=== PATIENT | female | born 2000 | race Caucasian/White ===

== ENCOUNTER 2021-06-09 21:38 | Emergency (ER) | payer OTHER, BC | END 2021-06-10 01:49 | disposition home or self-care (01) | LOC: ERS 21:38 | DX: S93.402A Sprain of unspecified ligament of left ankle, initial encounter (principal); S80.01XA Contusion of right knee, initial encounter; J45.909 Unspecified asthma, uncomplicated; V89.9XXA Person injured in unspecified vehicle accident, initial encounter ==

== ENCOUNTER 2023-03-07 18:14 | Inpatient (IN) | payer OTHER, BC ==
[~2023-03-07 18:14] MED LIST: Iopamidol-370 76% 500 ML MDV (1 ML CHARGE) ONE
[2023-03-07] MEDS ORDERED: Morphine 4 MG/ML VIAL ONE ×2 (18:18→18:40)
[2023-03-07] MEDS ORDERED: Ondansetron PF 4 MG/2 ML Vial ONE (18:18)
[2023-03-07] MEDS ORDERED: fentaNYL 50 mcg/mL 1 mL Vial ONE ×2 (18:27→20:23)
[2023-03-07] MEDS ORDERED: HYDROmorphone 0.5 MG/0.5 ML SYRINGE ONE (19:10)
[2023-03-07] MEDS ORDERED: Ondansetron PF 4 MG/2 ML Vial IVP PRN (19:18)
[2023-03-07] MEDS ORDERED: Ipratropium/Albuterol 3 ML NEB NEB PRN (19:18)
[2023-03-07] MEDS ORDERED: TETANUS, DIPHTHERIA TOX,ADULT (TDVAX) 0.5 ML VIAL IM ONE (19:18)
[2023-03-07] MEDS ORDERED: diphenhydrAMINE 50 MG/ML VIAL IVP PRN (19:21)
[2023-03-07] MEDS ORDERED: diphenhydrAMINE 50 MG/ML VIAL IM PRN (19:21)
[2023-03-07] MEDS ORDERED: diphenhydrAMINE 25 MG CAP PO PRN (19:21)
[2023-03-07] MEDS ORDERED: Zolpidem Tartrate 5 MG TAB PO PRN (19:21)
[2023-03-07] MEDS ORDERED: Ketorolac Tromethamine 30 MG/ML VIAL IVP PRN (19:21)
[2023-03-07] MEDS ORDERED: Naloxone HCl 0.4 mg/ml Vial IV PRN (19:21)
[2023-03-07] MEDS ORDERED: Communication Order-Pharmacy FS SCH (19:30)
[2023-03-07] MEDS ORDERED: Sodium Chloride 0.9% 1,000 ML IV SCH (19:30)
[2023-03-07] MEDS ORDERED: CEFAZOLIN 2 GM VIAL ONE (20:00)
[2023-03-07] MEDS ORDERED: Boostrix 0.5 ML (Tdap) VIAL (>/=7 yrs of age) ONE (20:00)
[2023-03-07 20:02] LABS: Hemoglobin 12.1 g/dL (12.0-16.0); Mean Corpuscular HGB CONC 34.7 g/dL (32.0-36.0); Mean Corpuscular Hemoglobin 28.6 pg (27.0-31.0); Mean Corpuscular Volume 82.5 fl (78.0-98.0); Mean Platelet Volume 7.7 fL (7.4-10.4); Platelet Count 282 10x3/uL (130-400); RBC Distribution Width 12.4 % (11.5-14.5); Red Blood Cell (RBC) Count 4.22 mill/uL (4.20-5.40); White Blood Cell (WBC) Count 29.7 10x3/uL (4.8-10.8)
[2023-03-07 20:06] LABS: BHCG - Serum Negative (NEGATIVE); Pregs Control Background? CLEAR/WHITE (CLR/WHITE); Pregs Control Bar Appear? YES (CONTROL BAR)
[2023-03-07 20:11] LABS: PTT 23.6 sec (22.9-36.1); Prothrombin Time 13.8 sec (12.0-14.7)
[2023-03-07 20:21] LABS: ALT (SGPT) 72 U/L (8-55); AST (SGOT) 130 U/L (5-34); Albumin 3.7 g/dL (3.5-5.0); Alcohol Less than 10 mg/dL (Less than 10); Alkaline Phosphatase 61 U/L (40-110); Anion Gap 15 mmol/L (10-20); BUN (Urea Nitrogen) 10 mg/dL (7.0-18.7); Bilirubin, Total 0.4 mg/dL (0.2-1.2); Calc. Creatinine Clearance 0 mL/min (70-130); Calcium 8.9 mg/dL (7.8-10.44); Carbon Dioxide 18 mmol/L (22-29); Chloride 105 mmol/L (98-107); Estimated GFR 120; Globulin 2.7 g/dL (2.4-3.5); Glucose 117 mg/dL (70-105); Lipase 25 U/L (8-78); Potassium 3.4 mmol/L (3.5-5.1); Protein, Total 6.4 g/dL (6.0-8.3); Sodium 135 mmol/L (136-145)
[2023-03-07 20:45] LABS: Band 12 % (5-11); Eosinophils 1 % (0-10); Lymphocytes 5 % (21-51); MDiff Complete? YES; Monocytes 4 % (0-10); Neutrophil 78 % (42-75); Platelet Morphology Comment Appears Adequate; RBC Morphology Normal; Reflex for Review?? NO
[2023-03-07 20:59] LABS: Actual Bicarbonate (HCO3v) 20 mEq/L (22-28); Analyzer IN Cardio ER; Base Excess -4.1 mEq/L (-2.0 to +3.0); Calcium, Ionized (venous) 1.08 mmol/L (1.16-1.32); Chloride (VBG) 104 mmol/L (98-106); Hemoglobin (Hb) 12.5 g/dL (11.7-15.5); Potassium (VBG) 3.95 mmol/L (3.70-5.30); Sodium 135.2 mmol/L (133-146); pH (venous) 7.38 (7.32-7.43)
[2023-03-07] MEDS ORDERED: HYDROmorphone 0.5 MG/0.5 ML SYRINGE SLOW IVP SCH ×2 (21:45→21:46)
[2023-03-07] MEDS ORDERED: Lidocaine 1% w/Epinephrine 1:100K 20 ML VIAL IJ SCH (21:45)
[2023-03-07] MEDS: HYDROmorphone 10 mg/100 ml CADD IVPB PRN (22:05)
[2023-03-07] MEDS ORDERED: Ketorolac Tromethamine 30 MG/ML VIAL IVP SCH (23:59)
[2023-03-08] MEDS: Ondansetron PF 4 MG/2 ML Vial IVP PRN (00:07)
[2023-03-08 00:12] LABS: Amphetamine Not Detected (NotDetected); Barbiturates Screen Not Detected (NotDetected); Benzodiazepine Screen Not Detected (NotDetected); Cocaine Metabolite Screen Not Detected (NotDetected); Methadone Not Detected (NotDetected); Methamphetamine Not Detected (NotDetected); Opiate Screen Detected (NotDetected); Oxycodone Screen Not Detected (NotDetected); Phencyclidine (PCP) Not Detected (NotDetected); THC/Cannabinoid Screen Not Detected (NotDetected); Tricyclic Screen Detected (NotDetected)
[2023-03-08 00:13] LABS: Bacteria/HPF None Seen HPF (None Seen); Bilirubin Negative (Negative); Blood, Urine 2+ (Negative); Clarity Clear (Clear); Glucose, Urine (Dipstick) Normal (Negative); Ketone, Urine Negative (Negative); Leukocyte Negative Leu/uL (Negative); Nitrite Negative (Negative); Protein, Urine (Dipstick) 30 mg/dL (Neg-Trace); RBC/HPF 21-50 HPF (0-3); Squamous Epithelial 0-3 HPF (0-3); Urobilinogen Normal mg/dL (Less than 2)
[2023-03-08 00:14] LABS: Specific Gravity, Urine 1.063 (1.002-1.036)
[2023-03-08 00:15] LABS: Pregnancy Test - Urine (BHCG) Negative (Negative); Pregu Control Background? CLEAR/WHITE (CLR/WHITE); Pregu Control Bar Appear? YES (CONTROL BAR)
[2023-03-08 00:16] LABS: Specific Gravity 1.063 (1.002-1.036)
[2023-03-08] MEDS ORDERED: Cyclobenzaprine 10 MG TAB PO SCH (00:45)
[2023-03-08] MEDS: Acetaminophen 500 MG TAB PO SCH ×5 (01:09→19:46)
[2023-03-08] MEDS: Scopolamine 1.5 mg/72 hour Patch TD SCH (01:15)
[2023-03-08] MEDS: Famotidine/PF 20 mg/2ml Vial SLOW IVP SCH ×3 (01:16→21:15)
[2023-03-08] MEDS: Lactated Ringer's 1,000 ML IV SCH ×6 (01:18→23:33)
[2023-03-08 01:24] LABS: #Lymphocytes 1.3 thou/uL (1.20-3.40); #Monocytes 0.8 thou/uL (0.11-0.59); #Neutrophils 15.8 thou/uL (1.40-6.50); %Basophils 0.2 % (0.0-1.0); %Eosinophils 0.1 % (0.0-10.0); %Lymphocytes 7.3 % (21.0-51.0); %Monocytes 4.2 % (0.0-10.0); %Neutrophils 88.1 % (42.0-75.0); Hemoglobin 11.9 g/dL (12.0-16.0); Mean Corpuscular HGB CONC 35.2 g/dL (32.0-36.0); Mean Corpuscular Hemoglobin 29.5 pg (27.0-31.0); Mean Corpuscular Volume 83.8 fl (78.0-98.0); Mean Platelet Volume 8.2 fL (7.4-10.4); Platelet Count 261 10x3/uL (130-400); RBC Distribution Width 12.7 % (11.5-14.5); Red Blood Cell (RBC) Count 4.02 mill/uL (4.20-5.40); White Blood Cell (WBC) Count 17.9 10x3/uL (4.8-10.8)
[2023-03-08 04:15] LABS: #Basophils 0.1 thou/uL (0.0-0.2); #Lymphocytes 1.7 thou/uL (1.20-3.40); #Monocytes 0.8 thou/uL (0.11-0.59); #Neutrophils 13.6 thou/uL (1.40-6.50); %Basophils 0.7 % (0.0-1.0); %Eosinophils 0.1 % (0.0-10.0); %Lymphocytes 10.6 % (21.0-51.0); %Monocytes 4.7 % (0.0-10.0); %Neutrophils 83.9 % (42.0-75.0); Hemoglobin 11.2 g/dL (12.0-16.0); Mean Corpuscular HGB CONC 32.7 g/dL (32.0-36.0); Mean Corpuscular Hemoglobin 27.3 pg (27.0-31.0); Mean Corpuscular Volume 83.3 fl (78.0-98.0); Platelet Count 232 10x3/uL (130-400); RBC Distribution Width 12.7 % (11.5-14.5); Red Blood Cell (RBC) Count 4.09 mill/uL (4.20-5.40); White Blood Cell (WBC) Count 16.2 10x3/uL (4.8-10.8)
[2023-03-08 04:32] LABS: Prothrombin Time 13.9 sec (12.0-14.7)
[2023-03-08 04:37] LABS: Anion Gap 14 mmol/L (10-20); BUN (Urea Nitrogen) 10 mg/dL (7.0-18.7); CK (CPK) 847 U/L (29-168); Calc. Creatinine Clearance 264 mL/min (70-130); Calcium 8.7 mg/dL (7.8-10.44); Carbon Dioxide 21 mmol/L (22-29); Chloride 106 mmol/L (98-107); Estimated GFR 126; Glucose 123 mg/dL (70-105); Potassium 4.1 mmol/L (3.5-5.1); Sodium 137 mmol/L (136-145)
[2023-03-08] MEDS: CEFAZOLIN 2 GM in Sodium Chloride 0.9% 100 ML IVPB SCH ×3 (04:40→21:15)
[2023-03-08 05:17] LABS: PTT 17.6 sec (22.9-36.1)
[2023-03-08] MEDS ORDERED: HYDROmorphone 0.5 MG/0.5 ML SYRINGE SLOW IVP SCH (08:04)
[2023-03-08] MEDS ORDERED: Sodium Chloride 0.9% 100 ML ONE (12:46)
[2023-03-08] MEDS ORDERED: CEFAZOLIN 2 GM VIAL ONE (12:46)
[2023-03-08] MEDS ORDERED: Oxymetazoline HCl 0.05% (30 ML BOT) ONE (13:24)
[2023-03-08] MEDS ORDERED: fentaNYL 50 mcg/mL 1 mL Vial ONE ×3 (13:42→19:35)
[2023-03-08] MEDS ORDERED: fentaNYL PF 100 MCG/2 ML SYRINGE ONE (14:37)
[2023-03-08] MEDS ORDERED: Lidocaine Jelly 2% Urojet 10 ML ONE (14:37)
[2023-03-08] MEDS ORDERED: Lidocaine 1% (PF) 30 ML VIAL ONE (14:42)
[2023-03-08] MEDS ORDERED: Chlorhexidine Gluconate 15 ML UDCUP SSP ONE (14:42)
[2023-03-08] MEDS ORDERED: EPINEPHrine 1 MG/ML AMP ONE (14:42)
[2023-03-08] MEDS ORDERED: Midazolam HCl 2 mg/2 ml Vial ONE (15:08)
[2023-03-08] MEDS ORDERED: Lidocaine 1% PF 5 ML VIAL ONE (15:13)
[2023-03-08] MEDS ORDERED: GLYCOPYRROLATE/PF 0.2 MG/ML VIAL ONE (15:13)
[2023-03-08] MEDS ORDERED: NEOSTIGMINE 3 MG/3 ML SYR 3 MG/3 ML SYRINGE ONE (15:13)
[2023-03-08] MEDS ORDERED: Rocuronium Bromide 10 MG/ML (10ML VIAL) ONE (15:13)
[2023-03-08] MEDS ORDERED: Dexamethasone 20 MG/5 ML VIAL ONE (15:13)
[2023-03-08] MEDS ORDERED: PROPOFOL 200 MG/20 ML VIAL ONE (15:13)
[2023-03-08] MEDS ORDERED: HYDROmorphone 2 MG/ML VIAL ONE (15:30)
[2023-03-08] MEDS ORDERED: Bacitracin Zinc Ointment 30 gm TUBE ONE (16:07)
[2023-03-08] MEDS ORDERED: CEFAZOLIN 1 GM VIAL ONE (18:07)
[2023-03-08] MEDS ORDERED: Non-Formulary Medication 1 EACH PO PRN (19:38)
[2023-03-08] MEDS ORDERED: Promethazine HCl 25 MG/ML VIAL IM/IV PRN (19:45)
[2023-03-08] MEDS ORDERED: Ondansetron HCl/PF 4 MG/2 ML Vial IVP PRN (19:45)
[2023-03-08] MEDS ORDERED: Ketorolac Tromethamine 30 MG/ML VIAL IM/IV PRN (19:45)
[2023-03-08] MEDS ORDERED: HYDROmorphone 2 MG/ML VIAL SLOW IVP PRN (19:45)
[2023-03-08] MEDS ORDERED: Albuterol 200 PUFF (6.7GM INHALER) INH PRN (23:26)
[2023-03-09] MEDS: Acetaminophen 500 MG TAB PO SCH ×4 (00:27→19:37)
[2023-03-09] MEDS: CEFAZOLIN 2 GM in Sodium Chloride 0.9% 100 ML IVPB SCH ×3 (05:06→21:07)
[2023-03-09] MEDS: Lactated Ringer's 1,000 ML IV SCH (05:07)
[2023-03-09 06:04] LABS: #Lymphocytes 2.1 thou/uL (1.20-3.40); #Monocytes 1.1 thou/uL (0.11-0.59); #Neutrophils 10.6 thou/uL (1.40-6.50); %Basophils 0.2 % (0.0-1.0); %Eosinophils 0.2 % (0.0-10.0); %Lymphocytes 15.4 % (21.0-51.0); %Monocytes 7.6 % (0.0-10.0); %Neutrophils 76.7 % (42.0-75.0); Mean Corpuscular HGB CONC 33.1 g/dL (32.0-36.0); Mean Corpuscular Hemoglobin 27.5 pg (27.0-31.0); Mean Corpuscular Volume 83.2 fl (78.0-98.0); Mean Platelet Volume 7.9 fL (7.4-10.4); Platelet Count 248 10x3/uL (130-400); RBC Distribution Width 12.5 % (11.5-14.5); Red Blood Cell (RBC) Count 3.27 mill/uL (4.20-5.40); White Blood Cell (WBC) Count 13.9 10x3/uL (4.8-10.8)
[2023-03-09 06:24] LABS: Anion Gap 14 mmol/L (10-20); BUN (Urea Nitrogen) 6 mg/dL (7.0-18.7); Calc. Creatinine Clearance 272 mL/min (70-130); Calcium 8.1 mg/dL (7.8-10.44); Carbon Dioxide 20 mmol/L (22-29); Chloride 104 mmol/L (98-107); Estimated GFR 127; Glucose 114 mg/dL (70-105); Magnesium 1.7 mg/dL (1.6-2.6); Phosphorus 2.6 mg/dL (2.3-4.7); Potassium 4.3 mmol/L (3.5-5.1); Sodium 134 mmol/L (136-145)
[2023-03-09] MEDS: Senokot S 8.6-50 MG TAB PO SCH (09:36)
[2023-03-09] MEDS: Cyclobenzaprine 10 MG TAB PO PRN (09:36)
[2023-03-09] MEDS: Gabapentin 300 MG CAP PO SCH ×3 (09:37→21:06)
[2023-03-09] MEDS: Diltiazem HCl SR 90 mg Capsule PO SCH (09:37)
[2023-03-09] MEDS: Polyethylene Glycol 3350 17 GM Packet PO SCH (09:42)
[2023-03-09] MEDS: Fluticasone Propionate Nasal Spray 16 gm Bottle NASAL SCH (14:28)
[2023-03-09] MEDS: HYDROmorphone 10 mg/100 ml CADD IVPB PRN (19:38)
[2023-03-10] MEDS: Senokot S 8.6-50 MG TAB PO SCH ×3 (01:29→20:13)
[2023-03-10] MEDS: Acetaminophen 500 MG TAB PO SCH ×4 (02:36→20:13)
[2023-03-10] MEDS: CEFAZOLIN 2 GM in Sodium Chloride 0.9% 100 ML IVPB SCH (05:20)
[2023-03-10] MEDS ORDERED: traMADol HCl 50 MG TAB PO SCH (09:00)
[2023-03-10] MEDS: Gabapentin 300 MG CAP PO SCH ×3 (09:08→20:13)
[2023-03-10] MEDS: Diltiazem HCl SR 90 mg Capsule PO SCH (09:09)
[2023-03-10] MEDS: Fluticasone Propionate Nasal Spray 16 gm Bottle NASAL SCH (09:12)
[2023-03-10] MEDS: Polyethylene Glycol 3350 17 GM Packet PO SCH (09:15)
[2023-03-10 09:48] LABS: #Eosinphils 0.1 thou/uL (0.0-0.7); #Lymphocytes 3.1 thou/uL (1.20-3.40); #Monocytes 0.8 thou/uL (0.11-0.59); #Neutrophils 7.6 thou/uL (1.40-6.50); %Basophils 0.4 % (0.0-1.0); %Eosinophils 1.1 % (0.0-10.0); %Lymphocytes 26.7 % (21.0-51.0); %Monocytes 6.6 % (0.0-10.0); %Neutrophils 65.2 % (42.0-75.0); Hemoglobin 8.8 g/dL (12.0-16.0); Mean Corpuscular HGB CONC 32.6 g/dL (32.0-36.0); Mean Corpuscular Hemoglobin 27.8 pg (27.0-31.0); Mean Corpuscular Volume 85.3 fl (78.0-98.0); Mean Platelet Volume 7.9 fL (7.4-10.4); Platelet Count 257 10x3/uL (130-400); RBC Distribution Width 12.6 % (11.5-14.5); Red Blood Cell (RBC) Count 3.15 mill/uL (4.20-5.40); White Blood Cell (WBC) Count 11.7 10x3/uL (4.8-10.8)
[2023-03-10 10:13] LABS: Anion Gap 11 mmol/L (10-20); BUN (Urea Nitrogen) 6 mg/dL (7.0-18.7); Calc. Creatinine Clearance 305 mL/min (70-130); Calcium 8.1 mg/dL (7.8-10.44); Carbon Dioxide 24 mmol/L (22-29); Chloride 103 mmol/L (98-107); Estimated GFR 130; Glucose 99 mg/dL (70-105); Magnesium 1.9 mg/dL (1.6-2.6); Sodium 134 mmol/L (136-145)
[2023-03-10] MEDS: traMADol HCl 50 MG TAB PO SCH ×3 (11:38→23:31)
[2023-03-10 13:12] LABS: Phosphorus 1.6 mg/dL (2.3-4.7)
[2023-03-10] MEDS: Scopolamine 1.5 mg/72 hour Patch TD SCH (18:47)
[2023-03-11 03:49] VITALS: BMI 42.3
[2023-03-11] MEDS: Acetaminophen 500 MG TAB PO SCH ×2 (03:50→09:02)
[2023-03-11] MEDS: traMADol HCl 50 MG TAB PO SCH ×2 (05:43→12:35)
[2023-03-11] MEDS ORDERED: Morphine 4 MG/ML VIAL ONE (08:28)
[2023-03-11] MEDS: Senokot S 8.6-50 MG TAB PO SCH ×2 (09:02→20:11)
[2023-03-11] MEDS: Polyethylene Glycol 3350 17 GM Packet PO SCH (09:02)
[2023-03-11] MEDS: Gabapentin 300 MG CAP PO SCH ×3 (09:03→20:12)
[2023-03-11] MEDS: Fluticasone Propionate Nasal Spray 16 gm Bottle NASAL SCH (09:04)
[2023-03-11] MEDS: Diltiazem HCl SR 90 mg Capsule PO SCH (09:04)
[2023-03-11 10:05] LABS: #Basophils 0.1 thou/uL (0.0-0.2); #Eosinphils 0.3 thou/uL (0.0-0.7); #Lymphocytes 2.1 thou/uL (1.20-3.40); #Monocytes 0.7 thou/uL (0.11-0.59); #Neutrophils 9.4 thou/uL (1.40-6.50); %Basophils 0.5 % (0.0-1.0); %Eosinophils 2.3 % (0.0-10.0); %Lymphocytes 16.5 % (21.0-51.0); %Monocytes 5.8 % (0.0-10.0); %Neutrophils 74.9 % (42.0-75.0); Hemoglobin 9.5 g/dL (12.0-16.0); Mean Corpuscular HGB CONC 33.7 g/dL (32.0-36.0); Mean Corpuscular Hemoglobin 28.3 pg (27.0-31.0); Mean Platelet Volume 7.7 fL (7.4-10.4); Platelet Count 279 10x3/uL (130-400); RBC Distribution Width 12.4 % (11.5-14.5); Red Blood Cell (RBC) Count 3.37 mill/uL (4.20-5.40); White Blood Cell (WBC) Count 12.5 10x3/uL (4.8-10.8)
[2023-03-11] MEDS ORDERED: Ketorolac Tromethamine 30 MG/ML VIAL IVP SCH (12:00)
[2023-03-11] MEDS ORDERED: Sodium Phosphate 30 MMOL in Sodium Chloride 0.9% 250 ML 250 ML IVPB SCH (12:30)
[2023-03-11] MEDS: Cyclobenzaprine 10 MG TAB PO PRN (12:36)
[2023-03-11 15:49] LABS: Anion Gap 13 mmol/L (10-20); BUN (Urea Nitrogen) 8 mg/dL (7.0-18.7); Calc. Creatinine Clearance 321 mL/min (70-130); Calcium 8.8 mg/dL (7.8-10.44); Carbon Dioxide 24 mmol/L (22-29); Chloride 101 mmol/L (98-107); Estimated GFR 131; Glucose 102 mg/dL (70-105); Magnesium 1.7 mg/dL (1.6-2.6); Phosphorus 3.9 mg/dL (2.3-4.7); Potassium 3.9 mmol/L (3.5-5.1); Sodium 134 mmol/L (136-145)
[2023-03-11] MEDS: Acetaminophen/Codeine 30-300mg Tablet PO SCH ×2 (16:09→20:11)
[2023-03-11] MEDS: Acetaminophen 325 MG TAB PO SCH ×2 (16:10→20:11)
[2023-03-11] MEDS ORDERED: traMADol HCl 50 MG TAB PO PRN (18:35)
[2023-03-12] MEDS: Acetaminophen 325 MG TAB PO SCH ×4 (03:41→20:33)
[2023-03-12] MEDS: Acetaminophen/Codeine 30-300mg Tablet PO SCH ×4 (03:41→20:27)
[2023-03-12] MEDS: Diltiazem HCl SR 90 mg Capsule PO SCH (08:38)
[2023-03-12] MEDS: Fluticasone Propionate Nasal Spray 16 gm Bottle NASAL SCH (08:38)
[2023-03-12] MEDS: Gabapentin 300 MG CAP PO SCH ×3 (08:39→20:28)
[2023-03-12] MEDS: Senokot S 8.6-50 MG TAB PO SCH ×2 (08:40→20:28)
[2023-03-12] MEDS: Polyethylene Glycol 3350 17 GM Packet PO SCH (08:43)
[2023-03-13] MEDS: Acetaminophen/Codeine 30-300mg Tablet PO SCH ×4 (04:02→21:04)
[2023-03-13] MEDS: Acetaminophen 325 MG TAB PO SCH ×4 (04:02→21:04)
[2023-03-13] MEDS: Fluticasone Propionate Nasal Spray 16 gm Bottle NASAL SCH (08:33)
[2023-03-13] MEDS: Gabapentin 300 MG CAP PO SCH ×3 (08:34→21:04)
[2023-03-13] MEDS: Diltiazem HCl SR 90 mg Capsule PO SCH (08:34)
[2023-03-13] MEDS: Senokot S 8.6-50 MG TAB PO SCH ×2 (08:34→21:04)
[2023-03-13] MEDS: Polyethylene Glycol 3350 17 GM Packet PO SCH (08:34)
[2023-03-13] MEDS ORDERED: traMADol HCl 50 MG TAB PO PRN (11:30)
[2023-03-13] MEDS: Scopolamine 1.5 mg/72 hour Patch TD SCH (18:11)
[2023-03-13] MEDS: Ondansetron PF 4 MG/2 ML Vial IVP PRN (19:58)
[2023-03-14] MEDS: Acetaminophen 325 MG TAB PO SCH ×2 (03:50→08:47)
[2023-03-14] MEDS: Acetaminophen/Codeine 30-300mg Tablet PO SCH ×2 (03:51→08:42)
[2023-03-14] MEDS ORDERED: HYDROcodone/Acetaminophen 7.5/325 mg Tablet PO PRN (08:44)
[2023-03-14] MEDS: Gabapentin 300 MG CAP PO SCH ×3 (08:47→20:25)
[2023-03-14] MEDS: Senokot S 8.6-50 MG TAB PO SCH ×2 (08:49→20:24)
[2023-03-14] MEDS: Ondansetron PF 4 MG/2 ML Vial IVP PRN (08:50)
[2023-03-14] MEDS: Fluticasone Propionate Nasal Spray 16 gm Bottle NASAL SCH (08:50)
[2023-03-14] MEDS: Diltiazem HCl SR 90 mg Capsule PO SCH (08:50)
[2023-03-14] MEDS: Polyethylene Glycol 3350 17 GM Packet PO SCH (10:14)
[2023-03-14] MEDS: HYDROcodone/Acetaminophen 7.5/325 mg Tablet PO SCH ×2 (11:53→18:04)
[2023-03-14 22:15] VITALS: BP 103/63; TEMP 99.1
== END 2023-03-14 21:27 | DRG 481 ==
LOC: ERS 18:14 → CCU 19:18 → SURG A 03-08 09:38
PROVIDERS: ADMIT Student in an Organized Health Care Education/Training Program; ATTEND Student in an Organized Health Care Education/Training Program
PROC: 0QS806Z Reposition Right Femoral Shaft with Intramedullary Internal Fixation Device, Open Approach (ICD-10-PCS; principal; 2023-03-08)
PROC: 0PSF04Z Reposition Right Humeral Shaft with Internal Fixation Device, Open Approach (ICD-10-PCS; 2023-03-08)
PROC: 0WQ2XZZ Repair Face, External Approach (ICD-10-PCS; 2023-03-08)
PROC: 0CDWXZ1 Extraction of Upper Tooth, Multiple, External Approach (ICD-10-PCS; 2023-03-08)
DX: S72.351A Displaced comminuted fracture of shaft of right femur, initial encounter for closed fracture (principal); S02.42XA Fracture of alveolus of maxilla, initial encounter for closed fracture; S42.401A Unspecified fracture of lower end of right humerus, initial encounter for closed fracture; V09.20XA Pedestrian injured in traffic accident involving unspecified motor vehicles, initial encounter; Y93.55 Activity, bike riding; S01.81XA Laceration without foreign body of other part of head, initial encounter; K58.9 Irritable bowel syndrome, unspecified; J45.909 Unspecified asthma, uncomplicated; S00.81XA Abrasion of other part of head, initial encounter; S01.512A Laceration without foreign body of oral cavity, initial encounter
CPT/HCPCS: 36415; 70450; 70486; 71045; 71260; 72125; 72170; 74177; 80048; 80053; 80306; 80307; 81003; 81015; 81025; 82550; 82805; 83605; 83690; 83735; 84100; 84703; 85025; 85610; 85730; 86850; 86900; 86901; 90471; 90715; 96365; 96375; 96376; C1713; C1769; G0390; J0171; J0690; J1100; J1170; J1650; J2001; J2250; J2270; J2405; J2704; J3010; J3490; J7120; Q9967; S0028